=== PATIENT | male | born 1995 | race African-American/Black ===

== ENCOUNTER 2018-06-19 08:56 | Emergency (ER) | payer SELFPAY ==
[~2018-06-19] VITALS: Ht 188 cm; Wt 112.0 kg
--- NOTE | 2018-06-19 09:34 | NUR ---
Patient discharged to home in stable conditon. Written and verbal after care instructions given. Patient verbalizes understanding of instructions.rx 2 given.
[2018-06-19 09:35] VITALS: BP 111/77
== END 2018-06-19 09:35 | disposition home or self-care (01) ==
LOC: ER 08:56
DX: J20.9 Acute bronchitis, unspecified (principal); Z88.8 Allergy status to other drugs, medicaments and biological substances
CPT/HCPCS: A4663